=== PATIENT | female | born 1970 | race Caucasian/White ===

== ENCOUNTER 2018-05-20 07:44 | Day surgery (SDC) | payer BC ==
[~2018-05-20] VITALS: Ht 154.9 cm; Wt 86.2 kg
[~2018-05-20 07:44] MED LIST: CEFAZOLIN 1 GM IVPB PREMIX 50 ML IV ONE
[2018-05-20] MEDS ORDERED: FAMOTIDINE 20 MG TABLET PO ONE (09:15)
[2018-05-20] MEDS ORDERED: METOCLOPRAMIDE HCL 10 MG TABLET PO ONE (09:15)
[2018-05-20] MEDS ORDERED: LR 1,000 ML IV SCH (09:35)
[2018-05-20] MEDS ORDERED: HYDROmorphone 1 MG INJ. 1 MG/ML AMPUL IVP PRN (09:45)
[2018-05-20] MEDS ORDERED: HYDROmorphone 2 MG/ML VIAL IVP PRN ×2 (09:45)
[2018-05-20] MEDS ORDERED: MEPERIDINE HCL/PF 25 MG/ML DISP.SYRIN IVP PRN (09:45)
[2018-05-20] MEDS ORDERED: OXYCODONE/ACETAMINOPHEN 5-325 TABLET PO PRN (10:15)
[2018-05-20] MEDS ORDERED: ONDANSETRON HCL 4 MG/2 ML VIAL IVP PRN (10:15)
[2018-05-20] MEDS ORDERED: HYDROcodone/ACETAMIN 5-325 MG TAB (NORCO/ VICODIN) PO PRN (10:15)
[2018-05-20] MEDS ORDERED: SEVOFLURANE 15 MIN GAS INH ONE (10:25)
[2018-05-20] MEDS ORDERED: ALFENTANIL HCL 1000 MCG/2 ML AMP ONE (10:25)
[2018-05-20] MEDS ORDERED: NS IRRIG SOLN 5000 ML IR ONE (10:25)
[2018-05-20] MEDS ORDERED: DEXAMETHASONE SOD PHOSPHATE 4 MG/ML VIAL ONE (10:25)
[2018-05-20] MEDS ORDERED: MIDAZOLAM HCL 5 MG/ML VIAL (VERSED) IV ONE (10:25)
[2018-05-20] MEDS ORDERED: ONDANSETRON HCL 4 MG/2 ML VIAL ONE ×2 (10:25→11:18)
[2018-05-20] MEDS ORDERED: KETOROLAC TROMETHAMINE 30 MG VIAL ONE (10:25)
[2018-05-20] MEDS ORDERED: ROCURONIUM BROMIDE 10 MG/ML (ZEMURON) ONE (10:25)
[2018-05-20] MEDS ORDERED: LR 1,000 ML IV.SOLN IV ONE (10:25)
[2018-05-20 11:00] VITALS: BP_SYST 101
[2018-05-20] MEDS ORDERED: HYDROcodone/ACETAMIN 5-325 MG TAB (NORCO/ VICODIN) ONE (11:20)
[2018-05-20] MEDS ORDERED: IBUPROFEN 800 MG TABLET PO ONE (11:30)
== END 2018-05-20 12:20 | disposition home or self-care (01) ==
LOC: SDS 07:44 → SMU 07:45 → SDS 12:20
PROVIDERS: ATTEND Specialist
DX: N93.8 Other specified abnormal uterine and vaginal bleeding (principal); R93.89 Abnormal findings on diagnostic imaging of other specified body structures; D25.9 Leiomyoma of uterus, unspecified; N71.9 Inflammatory disease of uterus, unspecified; I10 Essential (primary) hypertension; E66.9 Obesity, unspecified; D64.9 Anemia, unspecified; Z88.8 Allergy status to other drugs, medicaments and biological substances; Z88.2 Allergy status to sulfonamides; Z79.899 Other long term (current) drug therapy; Z68.36 Body mass index [BMI] 36.0-36.9, adult
CPT/HCPCS: 58558; 88305; J0690; J1100; J1885; J2250; J2405; J3490; J7120; J8597